=== PATIENT | female | born 1955 | race Caucasian/White ===

== ENCOUNTER 2017-08-03 14:41 | Inpatient (IN) | payer OTHER ==
[~2017-08-03] VITALS: Ht 162.6 cm; Wt 54.4 kg
--- NOTE | 2017-08-03 15:28 | PHYS DOC ---
Past Medical History Past Medical History: Hypothyroid Past Surgical History: Other Additional Past Surgical Histo: thyroid surgery Alcohol Use: None Drug Use: None Adult General Chief Complaint Chief Complaint: KNEE INJURY HPI HPI Patient is a 62 year old female presents to the ED complaining of knee injury x 1 hour. States that she tripped while pulling her sons dog, fell back and her sons dog landed on top of her. Describes pain as sharp. Rates pain as 8/10. Unable to ambulate. Denies symptoms prior to fall, head/neck injury, LOC, vision changes, chest pain, shortness of breath or n/v. Review of Systems Review of Systems Constitutional: Denies fever or chills [] Eyes: Denies change in visual acuity, redness, or eye pain [] HENT: Denies nasal congestion or sore throat [] Respiratory: Denies cough or shortness of breath [] Cardiovascular: No additional information not addressed in HPI [] GI: Denies abdominal pain, nausea, vomiting, bloody stools or diarrhea [] : Denies dysuria or hematuria [] Musculoskeletal: Denies back pain. Left knee pain. [] Integument: Denies rash or skin lesions [] Neurologic: Denies headache, focal weakness or sensory changes [] Endocrine: Denies polyuria or polydipsia [] All other systems were reviewed and found to be within normal limits, except as documented in this note. Allergies Allergies Allergies Coded Allergies Type Severity Reaction Last Updated Verified Sulfa (Sulfonamide Antibiotics) Allergy Intermediate rapid heart rate 12/18/14 No Physical Exam Physical Exam Constitutional: Well developed, well nourished, no acute distress, non-toxic appearance. [] HENT: Normocephalic, atraumatic, bilateral external ears normal, oropharynx moist, no oral exudates, nose normal. [] Eyes: PERRLA, EOMI, conjunctiva normal, no discharge. [] Neck: Normal range of motion, no tenderness, supple, no stridor. [] Cardiovascular:Heart rate regular rhythm, no murmur [] Lungs & Thorax: Bilateral breath sounds clear to auscultation [] Abdomen: Bowel sounds normal, soft, no tenderness, no masses, no pulsatile masses. [] Skin: Warm, dry, no erythema, no rash. [] Back: No tenderness, no CVA tenderness. [] Extremities: MILD LEFT MEDIAL KNEE TENDERNESS/SWELLING. no cyanosis, no clubbing , ROM intact, no edema. [] Neurologic: Alert and oriented X 3, normal motor function, normal sensory function, no focal deficits noted. [] Psychologic: Affect normal, judgement normal, mood normal. [] Current Patient Data Vital Signs Vital Signs Date Time Temp Pulse Resp B/P (MAP) Pulse Ox O2 Delivery O2 Flow Rate FiO2 08/03/17 14:56 97.7 79 16 99 Room Air 97.7 Lab Values Laboratory Tests Test 08/03/17 18:00 White Blood Count 12.5 x10^3/uL (4.0-11.0) H Red Blood Count 4.33 x10^6/uL (3.50-5.40) Hemoglobin 14.4 g/dL (12.0-15.5) Hematocrit 43.4 % (36.0-47.0) Mean Corpuscular Volume 100 fL (79-100) Mean Corpuscular Hemoglobin 33 pg (25-35) Mean Corpuscular Hemoglobin Concent 33 g/dL (31-37) Red Cell Distribution Width 12.8 % (11.5-14.5) Platelet Count 232 x10^3/uL (140-400) Prothrombin Time 12.5 SEC (11.7-14.0) Prothrombin Time INR 1.0 (0.8-1.1) Sodium Level 142 mmol/L (136-145) Potassium Level 3.8 mmol/L (3.5-5.1) Chloride Level 107 mmol/L (98-107) Carbon Dioxide Level 29 mmol/L (21-32) Anion Gap 6 (6-14) Blood Urea Nitrogen 9 mg/dL (7-20) Creatinine 0.7 mg/dL (0.6-1.0) Estimated GFR (Cockcroft-Gault) 85.1 BUN/Creatinine Ratio 13 (6-20) Glucose Level 105 mg/dL (70-99) H Calcium Level 9.4 mg/dL (8.5-10.1) Total Bilirubin 0.5 mg/dL (0.2-1.0) Aspartate Amino Transferase (AST) 27 U/L (15-37) Alanine Aminotransferase (ALT) 24 U/L (14-59) Alkaline Phosphatase 99 U/L (46-116) Total Protein 6.9 g/dL (6.4-8.2) Albumin 4.0 g/dL (3.4-5.0) Albumin/Globulin Ratio 1.4 (1.0-1.7) Laboratory Tests 08/03/17 18:00 Laboratory Tests 08/03/17 18:00 EKG EKG [] Radiology/Procedures Radiology/Procedures [] Course & Med Decision Making Course & Med Decision Making Pertinent Labs and Imaging studies reviewed. (See chart for details) Knee immobilizer placed. NV intact post placement. []Discussed case with on-call orthopedics, Dr. Iqbal. Will take patient to surgery [facility]. Patient states she does not have a PCP. Discussed case with Dr. Holley. Agrees to admission and further management of patient. Patient stable for admission. Dragon Disclaimer Dragon Disclaimer This electronic medical record was generated, in whole or in part, using a voice recognition dictation system. Departure Departure Impression: Primary Impression: Tibial plateau fracture Disposition: ADMITTED INPATIENT Condition: STABLE Referrals: NO SELLERS MD (PCP) NIVIA WELCH Aug 03, 2017 15:28
--- NOTE | 2017-08-03 16:08 | RAD ---
History: Injury, pain. Comparison: None. Findings: AP, lateral, and oblique views of the left knee. There is a comminuted fracture involving the proximal tibia, more evident involving the lateral tibial plateau. There could be up to 3 mm of articular incongruence. No joint effusion is confidently identified. Quadriceps tendon insertional enthesophyte is present. Impression: Comminuted proximal tibial fracture with evidence of articular incongruence. Electronically signed by: Sha Valerio MD (08/03/2017 4:04 PM) [facility] [place]
[2017-08-03] MEDS ORDERED: ACETAMINOPHEN 325 MG TABLET. PO PRN (18:15)
[2017-08-03] MEDS ORDERED: MORPHINE SULFATE 2 MG/ML DISP.SYRIN. IV PRN ×2 (18:15→19:45)
[2017-08-03] MEDS ORDERED: ONDANSETRON PF 4 MG/2 ML VIAL. IV PRN ×2 (18:15→19:45)
[2017-08-03 18:24] LABS: HEMATOCRIT 43.4 % (36.0-47.0); HEMOGLOBIN 14.4 g/dL (12.0-15.5); RED BLOOD COUNT 4.33 x10^6/uL (3.50-5.40); RED CELL DISTRIBUTION WIDTH 12.8 % (11.5-14.5); WHITE BLOOD COUNT 12.5 x10^3/uL (4.0-11.0)
[2017-08-03 18:41] LABS: CALCIUM 9.4 mg/dL (8.5-10.1); CREATININE 0.7 mg/dL (0.6-1.0); GFR 85.1; POTASSIUM 3.8 mmol/L (3.5-5.1)
[2017-08-03] MEDS ORDERED: PROPOFOL 20 ML IV ONE (18:47)
[2017-08-03] MEDS ORDERED: fentaNYL PF VIAL 100 MCG/2 ML VIAL ONE (18:47)
[2017-08-03] MEDS ORDERED: LIDOCAINE 2% PF Vial for OR 5 ML VIAL. ONE (18:47)
[2017-08-03] MEDS ORDERED: SUCCINYLCHOLINE 200 MG/10 ML VIAL. ONE (18:48)
[2017-08-03 18:49] LABS: ALBUMIN/GLOBULIN RATIO 1.4 (1.0-1.7); TOTAL BILIRUBIN 0.5 mg/dL (0.2-1.0); TOTAL PROTEIN 6.9 g/dL (6.4-8.2)
[2017-08-03] MEDS ORDERED: IV RINGERS,LACTATED 1000ML 1,000 ML IV SCH (19:30)
--- NOTE | 2017-08-03 19:37 | PDOC2 ---
CONSULT Date of Consult Date of Consult DATE: 08/03/17 TIME: 19:18 Reason for Consult Reason for Consult: left tibial plateau fracture Identification/Chief Complaint Chief Complaint left knee pain Problems: Source Source: Chart review, Patient History of Present Illness Reason for Visit: The patient is a 62 year old smoker who presented to the ER today after a dog she was walking pulled her down. She was unable to ambulate afterwards and complaining of left knee pain. She does not have a prior history of left knee pain. She does not know her vitamin D status, and believes she has had a bone scan before that told her she has osteoporosis, but she is not on any medications for it. Past Medical History Past Medical History heart palpitations, thyroid disease, possible osteoporosis Past Surgical History Past Surgical History Laparoscopy Family History Family History noncontributory Social History <1 pack per day ALCOHOL: none Drugs: None Lives: with Family Current Problem List Problem List Problems Medical Problems: (1) Tibial plateau fracture Status: Acute Current Medications Current Medications Current Medications Ondansetron HCl (Zofran) 4 mg PRN Q8HRS PRN IV NAUSEA/VOMITING; Start at 18:15; Stop 08/04/17 at 18:14 Morphine Sulfate 2 mg PRN Q2HR PRN IV PAIN; Start 08/03/17 at 18:15; Stop at 18:14 Acetaminophen (Tylenol) 650 mg PRN Q4HRS PRN PO FEVER; Start 08/03/17 at 18:15 ; Stop 08/04/17 at 18:14 Allergies Allergies: Coded Allergies: Sulfa (Sulfonamide Antibiotics) (Unverified Allergy, Intermediate, rapid heart rate, 12/18/14) ROS Review of System negative except per hpi Musculoskeletal: Yes Gait Disturbance, Yes Joint Pain, Yes Joint Swelling Physical Exam General: Alert, Oriented X3, Cooperative, No acute distress HEENT: Atraumatic Lungs: Normal air movement Heart: Regular rate MUSCULOSKELETAL: Other (left lower extremity with swelling at the knee. minimal ecchymosis, no blistering or abrasions. nvi distally. silt in the tibial , saph, sural, sp, dp nerves. 2+ dp pulse. ) Vitals VITALS Vital Signs Date Time Temp Pulse Resp B/P (MAP) Pulse Ox O2 Delivery O2 Flow Rate FiO2 11/25/17 18:14 78 16 98 08/03/17 14:56 97.7 Room Air 97.7 Labs Labs Laboratory Tests Test 08/03/17 18:00 White Blood Count 12.5 x10^3/uL (4.0-11.0) Red Blood Count 4.33 x10^6/uL (3.50-5.40) Hemoglobin 14.4 g/dL (12.0-15.5) Hematocrit 43.4 % (36.0-47.0) Mean Corpuscular Volume 100 fL (79-100) Mean Corpuscular Hemoglobin 33 pg (25-35) Mean Corpuscular Hemoglobin Concent 33 g/dL (31-37) Red Cell Distribution Width 12.8 % (11.5-14.5) Platelet Count 232 x10^3/uL (140-400) Sodium Level 142 mmol/L (136-145) Potassium Level 3.8 mmol/L (3.5-5.1) Chloride Level 107 mmol/L (98-107) Carbon Dioxide Level 29 mmol/L (21-32) Anion Gap 6 (6-14) Blood Urea Nitrogen 9 mg/dL (7-20) Creatinine 0.7 mg/dL (0.6-1.0) Estimated GFR (Cockcroft-Gault) 85.1 BUN/Creatinine Ratio 13 (6-20) Glucose Level 105 mg/dL (70-99) Calcium Level 9.4 mg/dL (8.5-10.1) Total Bilirubin 0.5 mg/dL (0.2-1.0) Aspartate Amino Transf (AST/SGOT) 27 U/L (15-37) Alanine Aminotransferase (ALT/SGPT) 24 U/L (14-59) Alkaline Phosphatase 99 U/L (46-116) Total Protein 6.9 g/dL (6.4-8.2) Albumin 4.0 g/dL (3.4-5.0) Albumin/Globulin Ratio 1.4 (1.0-1.7) Laboratory Tests Test 08/03/17 18:00 White Blood Count 12.5 x10^3/uL (4.0-11.0) Red Blood Count 4.33 x10^6/uL (3.50-5.40) Hemoglobin 14.4 g/dL (12.0-15.5) Hematocrit 43.4 % (36.0-47.0) Mean Corpuscular Volume 100 fL (79-100) Mean Corpuscular Hemoglobin 33 pg (25-35) Mean Corpuscular Hemoglobin Concent 33 g/dL (31-37) Red Cell Distribution Width 12.8 % (11.5-14.5) Platelet Count 232 x10^3/uL (140-400) Sodium Level 142 mmol/L (136-145) Potassium Level 3.8 mmol/L (3.5-5.1) Chloride Level 107 mmol/L (98-107) Carbon Dioxide Level 29 mmol/L (21-32) Anion Gap 6 (6-14) Blood Urea Nitrogen 9 mg/dL (7-20) Creatinine 0.7 mg/dL (0.6-1.0) Estimated GFR (Cockcroft-Gault) 85.1 BUN/Creatinine Ratio 13 (6-20) Glucose Level 105 mg/dL (70-99) Calcium Level 9.4 mg/dL (8.5-10.1) Total Bilirubin 0.5 mg/dL (0.2-1.0) Aspartate Amino Transf (AST/SGOT) 27 U/L (15-37) Alanine Aminotransferase (ALT/SGPT) 24 U/L (14-59) Alkaline Phosphatase 99 U/L (46-116) Total Protein 6.9 g/dL (6.4-8.2) Albumin 4.0 g/dL (3.4-5.0) Albumin/Globulin Ratio 1.4 (1.0-1.7) Images Images xrays of the left knee and tibia reveal a coronal shear tibial plateau fracture with lateral joint depression. Assessment/Plan Assessment/Plan The patient is a 62 year old female smoker who has a left coronal shear tibial plateau fracture. We discussed the risks and benefits of operative versus nonoperative treatment. She understands that this is a staged procedure and that she will need internal fixation by a traumatologist at a later date after her soft tissue swelling has subsided. The risks of external fixation include damage to surrounding nerves and tissues, the possibility of infection, the risk of malreduction, and the need for more surgery. After a discussion of the risks and benefits she elected to proceed. We will proceed this evening. She will be nwb on the lle dvt ppx with xarelto transfer to in the am for definitive management. As the patient was being induced it was discovered that the external fixator set was contaminated with biological tissue, so the case was aborted. We will plan for external fixation in the am. NPO at midnight. LUIS CARLOS ERNANDEZ MD Aug 03, 2017 19:36
[2017-08-03] MEDS ORDERED: PROCHLORPERAZINE 10 MG/2 ML VIAL. IV PRN (19:45)
[2017-08-03] MEDS ORDERED: HYDROmorphone 2 MG/ML VIAL IV PRN (19:45)
[2017-08-03] MEDS ORDERED: LIDOCAINE 1% PF 2 ML VIAL. ID PRN (19:45)
[2017-08-03] MEDS ORDERED: fentaNYL PF VIAL 100 MCG/2 ML VIAL IV PRN ×2 (19:45)
[2017-08-03 20:37] VITALS: BP 133/53
[2017-08-03 21:08] LABS: PROTHROMBIN TIME PATIENT 12.5 SEC (11.7-14.0)
--- NOTE | 2017-08-04 07:51 | RAD ---
TIBIA FIBULA LEFT History:injury Comparison: None Findings:4 views of the left tibia-fibula are submitted. There is displaced mostly vertically oriented fracture involving the central to lateral tibial plateau with extent of fracture plane to the intercondylar region. More posterior fragment is somewhat depressed and displaced posteriorly. Impression: 1.There is somewhat displaced tibial plateau fracture.
== END 2017-08-04 10:24 | disposition short-term general hospital (02) | DRG 563 ==
LOC: ER 14:41 → 4 NORTH 18:05
PROVIDERS: ADMIT Internal Medicine; ATTEND Internal Medicine
DX: S82.142A Displaced bicondylar fracture of left tibia, initial encounter for closed fracture (principal); E03.9 Hypothyroidism, unspecified; W01.0XXA Fall on same level from slipping, tripping and stumbling without subsequent striking against object, initial encounter; F17.200 Nicotine dependence, unspecified, uncomplicated; M81.0 Age-related osteoporosis without current pathological fracture; E07.9 Disorder of thyroid, unspecified; Y93.89 Activity, other specified; Y92.89 Other specified places as the place of occurrence of the external cause; Y99.8 Other external cause status
CPT/HCPCS: 29505; 36415; 73562; 73590; 80053; 82306; 85027; 85610; 86850; 86900; 86901; J0330; J0690; J0780; J2704; J3010; 99285-25; J2001